=== PATIENT | male | born 1970 | race Caucasian/White ===

== ENCOUNTER → 2022-04-11 16:50 | Outpatient (CLI) | payer BC, SELFPAY ==
[2022-04-11 20:06] LABS: Basophils # 0.1 K/mm3 (0-0.2); Basophils % 0.5 % (0.1-2.0); Eosinophils # 0.4 K/mm3 (0.0-0.4); Hematocrit 49.6 % (42.0-52.0); Hemoglobin 16.6 g/dL (14.1-18.0); Lymphocytes # 2.5 K/mm3 (0.7-4.5); Mean Corpuscular HGB Conc 33.4 g/dL (31.8-35.4); Mean Corpuscular Hemoglobin 27.4 pg (27.0-31.2); Mean Platelet Volume 8.3 fl (7.4-10.4); Monocytes # 0.7 K/mm3 (0.1-1.0); Monocytes % 5.9 % (1.7-9.3); Neutrophils # 7.6 K/mm3 (1.8-7.8); Neutrophils % 67.6 % (37.0-80.0); Platelet Count 409 K/mm3 (142-424); Red Blood Count 6.05 M/mm3 (4.60-6.20); Red Cell Distribution Width 13.7 % (11.5-17.5); White Blood Count 11.2 K/mm3 (4.8-10.8)
== END ==
PROVIDERS: PCP Nurse Practitioner; Visit Provider Nurse Practitioner
DX: J06.9 Acute upper respiratory infection, unspecified (principal); J45.901 Unspecified asthma with (acute) exacerbation; R00.0 Tachycardia, unspecified
CPT/HCPCS: 85025

== ENCOUNTER → 2022-06-07 16:20 | Outpatient (CLI) | payer BC, SELFPAY ==
--- NOTE | 2022-06-07 16:24 | XR_ITS ---
PROCEDURE INFORMATION: Exam: XR Right Shoulder Exam date and time: 06/07/2022 4:30 PM Age: 52 years old Clinical indication: Pain; Shoulder; Right; Additional info: Right shoulder pain TECHNIQUE: Imaging protocol: Radiologic exam of the Right shoulder. Views: 2 or more views. COMPARISON: No relevant prior exams. FINDINGS: Bones/joints: Normal. No fractures or dislocations. The joint spaces are intact. Soft tissues: Normal. No swelling or abnormal density. IMPRESSION: Unremarkable shoulder.
--- NOTE | 2022-06-07 16:24 | XR_ITS ---
PROCEDURE INFORMATION: Exam: XR Entire Spine Exam date and time: 06/07/2022 4:30 PM Age: 52 years old Clinical indication: Other: Neck pain; Additional info: Neck pain with radiculopathy TECHNIQUE: Imaging protocol: XR of the entire spine. Evaluation for scoliosis or surgical evaluation. Views: 6 or more views. COMPARISON: No relevant prior exams. FINDINGS: Bones/joints: Vertebral body heights maintained. No fractures. Normal alignment. Moderate narrowing of the C5-C6 disc space. Minimal narrowing of some of the thoracic disc spaces. Small marginal endplate osteophytes. Mild narrowing of the L1-L2 and L5-S1 lumbar disc spaces. Soft tissues: Unremarkable. IMPRESSION: 1. No fractures or dislocations. 2. Mild degenerative changes of the cervical, thoracic, and lumbar spine.
== END ==
PROVIDERS: PCP Nurse Practitioner; Visit Provider Nurse Practitioner
DX: M25.511 Pain in right shoulder (principal); G89.29 Other chronic pain
CPT/HCPCS: 72084; 73030

== ENCOUNTER → 2022-10-05 23:29 | Outpatient (CLI) | payer BC, SELFPAY ==
[2022-10-05 18:34] LABS: Basophils # 0.1 K/mm3 (0-0.2); Basophils % 0.7 % (0.1-2.0); Eosinophils # 1.3 K/mm3 (0.0-0.4); Eosinophils % 11.7 % (0.1-12.0); Hematocrit 47.4 % (42.0-52.0); Hemoglobin 15.7 g/dL (14.1-18.0); Lymphocytes # 2.2 K/mm3 (0.7-4.5); Lymphocytes % 19.8 % (10-50); Mean Corpuscular HGB Conc 33.1 g/dL (31.8-35.4); Mean Corpuscular Hemoglobin 27.2 pg (27.0-31.2); Mean Corpuscular Volume 82.1 fl (80-94); Mean Platelet Volume 7.5 fl (7.4-10.4); Monocytes # 0.6 K/mm3 (0.1-1.0); Monocytes % 5.7 % (1.7-9.3); Neutrophils # 6.8 K/mm3 (1.8-7.8); Platelet Count 374 K/mm3 (142-424); Red Blood Count 5.77 M/mm3 (4.60-6.20); Red Cell Distribution Width 13.9 % (11.5-17.5); White Blood Count 10.9 K/mm3 (4.8-10.8)
== END ==
PROVIDERS: PCP Nurse Practitioner; Visit Provider Nurse Practitioner
DX: J18.9 Pneumonia, unspecified organism (principal); J45.901 Unspecified asthma with (acute) exacerbation
CPT/HCPCS: 85025

== ENCOUNTER → 2022-10-27 10:19 | Outpatient (CLI) | payer BC, SELFPAY ==
[2022-10-27 19:22] LABS: Basophils % 0.1 % (0.1-2.0); Eosinophils % 0.3 % (0.1-12.0); Hematocrit 49.8 % (42.0-52.0); Lymphocytes # 0.9 K/mm3 (0.7-4.5); Lymphocytes % 6.4 % (10-50); Mean Corpuscular HGB Conc 32.2 g/dL (31.8-35.4); Mean Corpuscular Hemoglobin 26.7 pg (27.0-31.2); Mean Platelet Volume 8.1 fl (7.4-10.4); Monocytes # 0.6 K/mm3 (0.1-1.0); Monocytes % 4.3 % (1.7-9.3); Neutrophils # 12.8 K/mm3 (1.8-7.8); Neutrophils % 88.9 % (37.0-80.0); Platelet Count 350 K/mm3 (142-424); Red Blood Count 5.99 M/mm3 (4.60-6.20); White Blood Count 14.4 K/mm3 (4.8-10.8)
[2022-10-27 19:24] LABS: MANUAL DIFFERENTIAL MANUAL DIFFERENTIAL (MANUAL DIFF)
[2022-10-27 19:29] LABS: Alanine Aminotransferase 71 U/L (12-78); Albumin Level 4.5 g/dl (3.5-5.0); Albumin/Globulin Ratio 1.6 (1.1-1.8); Alkaline Phosphatase 80 U/L (38-126); Anion Gap 16.7 mEq/L (5-15); Aspartate Amino Transferase 45 U/L (17-59); Bilirubin,Total 0.8 mg/dl (0.2-1.3); Blood Urea Nitrogen 14 mg/dl (9-20); Calcium 9.2 mg/dl (8.4-10.2); Carbon Dioxide 24 mmol/L (22.0-30.0); Chloride 103 mmol/L (98-107); Estimated Glomerular Filt Rate 102 ml/min (>60); GFR (African American) 123 ML/MIN (>60); Globulin 2.8 g/dL (1.3-3.2); Glucose 78 mg/dl (74-100); Potassium 4.7 mmoL/L (3.5-5.1); Sodium 139 mmol/L (136-145); Total Protein,Serum 7.3 g/dl (6.3-8.2)
[2022-10-27 19:42] LABS: Hemoglobin A1C 5.6 % (4.0-6.0)
[2022-10-27 19:45] LABS: 25-OH Vitamin D, Total 33.3 ng/mL (30-100); Lymphocytes % 5 % (10-50); Monocytes % 3 % (2-9); Neutrophils % 92 % (42-76); Platelet Estimate Normal; RBC Morphology Normal; Total Cells Counted 100
[2022-10-27 20:15] LABS: Vitamin B12 649 pg/mL (239-931)
== END ==
PROVIDERS: PCP Nurse Practitioner; Visit Provider Nurse Practitioner
DX: J45.901 Unspecified asthma with (acute) exacerbation (principal); R20.2 Paresthesia of skin; E66.3 Overweight; Z68.29 Body mass index [BMI] 29.0-29.9, adult
CPT/HCPCS: 80053; 82306; 82607; 83036; 84443; 85007; 85025

== ENCOUNTER → 2022-11-14 23:00 | Outpatient (CLI) | payer BC, SELFPAY ==
[2022-11-14 18:42] LABS: Basophils % 0.3 % (0.1-2.0); Eosinophils # 0.1 K/mm3 (0.0-0.4); Eosinophils % 0.9 % (0.1-12.0); Hemoglobin 16.2 g/dL (14.1-18.0); Lymphocytes # 1.7 K/mm3 (0.7-4.5); Lymphocytes % 23.5 % (10-50); Mean Corpuscular HGB Conc 31.2 g/dL (31.8-35.4); Mean Corpuscular Hemoglobin 26.6 pg (27.0-31.2); Mean Corpuscular Volume 85.2 fl (80-94); Mean Platelet Volume 8.1 fl (7.4-10.4); Monocytes # 0.5 K/mm3 (0.1-1.0); Monocytes % 7.6 % (1.7-9.3); Neutrophils # 4.9 K/mm3 (1.8-7.8); Neutrophils % 67.7 % (37.0-80.0); Platelet Count 323 K/mm3 (142-424); Red Cell Distribution Width 14.1 % (11.5-17.5); White Blood Count 7.2 K/mm3 (4.8-10.8)
[2022-11-14 19:08] LABS: Free Thyroxine Index 4.1 ug/dL (5.93-13.13); T4 (Thyroxine) 10.8 ug/dl (5.53-11.0); Triiodothryronine (T3) Uptake 38 % (23.5-40.5)
[2022-11-14 19:21] LABS: Thyroid Stimulating Hormone 0.65 uIU/mL (0.465-4.68)
[2022-11-14 19:22] LABS: Thyroid Stimulating Hormone 0.66 uIU/mL (0.465-4.68)
== END ==
PROVIDERS: PCP Nurse Practitioner; Visit Provider Nurse Practitioner
DX: R79.89 Other specified abnormal findings of blood chemistry (principal); J45.901 Unspecified asthma with (acute) exacerbation
CPT/HCPCS: 84436; 84443; 84479; 85025

== ENCOUNTER → 2022-11-29 07:52 | Outpatient (CLI) | payer BC, SELFPAY ==
--- NOTE | 2022-11-29 07:53 | NM_ITS ---
APPROVED REPORT Exam: Nuclear Stress Test Indication: DYSRHYRHMIA, FM HX, C.P., SOB, PALPITATIONS, FATIGUE Patient Location: Outpatient Stress Tech: [facility] Tech:Viri Boles, YOLANDA RT (R)(N)(M) Ht: 5 ft 5 in Wt: 174 lbs HR: 52 bpm BP: 163/92 mmHg BSA: 1.86 m2 Rhythm: NSR TID: 0.95 BMI: 28.9 History: DYSRHYRHMIA, FM HX, C.P., SOB, PALPITATIONS, FATIGU Procedure: Patient exercised on Bhanu protocol 10:09 minutes and sec, resting heart rate 52 bpm, resting blood pressure 163/92 mmHg, with exercise maximum heart rate achived was 132 bpm which is 98 % of the maximum predicted heart rate and blood pressure was 180/90 mmHg. Test was stopped due to SOB. Patient denied any complaint of chest pain. Patient has Average exercise capacity, achieved 12.8 METs of workload on treadmill, the blood pressure response to exercise was Exaggerated. Cardiac Stress and Resting SPECT Images: Cardiac Stress and Resting SPECT images were obtained using technetium 99m Myoview 31.6 mCi stress and 10.32 mCi at rest. Resting and stress imaging in supine position demonstrate a medium sized, moderate, partially reversible perfusion defect in the inferior and inferoseptal LV bello. This is no longer visualized with prone stress imaging. Findings are suggestive of diaphragmatic attenuation. Gated imaging demonstrates normal global and regional LV systolic function. LVEF is calculated at 56%. Conclusion: Resting and stress imaging in supine position demonstrate a medium sized, moderate, partially reversible perfusion defect in the inferior and inferoseptal LV bello. This is no longer visualized with prone stress imaging. Findings are suggestive of diaphragmatic attenuation. Gated imaging demonstrates normal global and regional LV systolic function. LVEF is calculated at 56%. Electronically signed by : Francheska Huitron, 11/29/2022 18:49:42
--- NOTE | 2022-11-29 08:01 | CA_ITS ---
APPROVED REPORT EXAM: Comprehensive 2D, Doppler, and color-flow Echocardiogram [employer] Assistant: Alejandra Ryan CRT Ht: 5 ft 5 in Wt: 174lbs BSA: 1.86 BP: 110/62 mmHg Indications: Chest Pain,tachycardia 2D Dimensions LVOT 2.01 cm (M/F) 1.5-2.5 LA Volume 17.50 mL LA Volume Index 9.20 mL/m2 (M/F) 16-34 M-Mode Dimensions RVDd 2.54 cm (0.9-2.6) LA Diam 2.89 cm (1.9-4.0) LVDd 4.69 cm (3.5-5.7) Ao Diam 4.07 cm (2.0-3.7) LVDs 3.35 cm (3.5-5.7) IVSd 1.48 cm (0.6-1.1) PWd 0.93 cm (0.6-1.1) EF (Teich) 55.10% FS 28.60% EDV (Teich) 101.90 mL TAPSE 2.29 (<1.7) ESV (Teich) 45.80 mL LV Diastology E Decel Time 140.00 (160-240 msec) E/A Ratio 1.44 MED E' 8.40 (< 7 cm/sec) MED A' 10.80 cm/s E'/MED E' Ratio 10.74 (>14) LAT E' 10.20 (<10 cm/sec) LAT A' 11.40 cm/s E/LAT E' Ratio 8.84 (>14) Aortic Valve AO Peak GR. 6.00 mmHg Mitral Valve MV A Velocity 63.00 (40-130 cm/s) E/A Ratio 1.44 MV Decel. Time 140.00 (160-240 ms) Pulmonary Valve PV Peak Velocity 78.00 (50-150 cm/s) Tricuspid Valve TR P. Velocity 176.00 cm/s RAP Estimate 10.00 mmHg RVSP 22.40 mmHg Left Ventricle The left ventricle is normal size. The left ventricular systolic function is normal. The left ventricular ejection fraction is within the normal range. There is normal left ventricular wall thickness. There is normal LV segmental wall motion. The left ventricular diastolic function is normal. LVEF is 60%. Right Ventricle The right ventricle is normal size. The right ventricular systolic function is normal. Atria The left atrium size is normal. The right atrium size is normal. There is no Doppler evidence of interatrial shunt. Aortic Valve The aortic valve opens well. There is no aortic valvular stenosis. No aortic regurgitation is present. Mitral Valve The mitral valve is normal in structure. Mild mitral regurgitation. Tricuspid Valve The tricuspid valve leaflets are thin and pliable. Trace tricuspid regurgitation. There is insufficient TR jet to estimate RVSP. Pulmonic Valve The pulmonary valve is normal in structure. Trace pulmonic regurgitation. Great Vessels The aortic root is normal in size. The ascending aorta is normal in size. The IVC is not well visualized. Pericardium There is no pericardial effusion. Other Information Study Quality: Fair Conclusion Normal biventricular systolic function. No significant valvular disease. Electronically signed by : Francheska Huitron, 11/29/2022 15:35:12
--- NOTE | 2022-11-29 10:13 | CA_ITS ---
APPROVED REPORT Exam: Exercise Treadmill Technologist: Christie Skelton, Ht: 5 ft 5 in Wt: 174 lbs BSA: 1.86 m2 HR: 83 bpm BP: 140/88 mmHg Rhythm: NSR Medical History Medications: Albuterol,,,,, Montelukast,,,,, Prednisone,,,,, Methocarbamol,,,,, NYstatin,,,,, Fluconazole,,,,, Diclofenac Sodium,,,,, Trelegy Ellipta,,,,, DexTROMETHORPHAN-guaifensin,,,,, Stress Test Details Test: Bhanu HR Resting HR: 83 bpm Max Heart Rate (APMHR): 169 bpm Max HR Achieved: 178 bpm Target HR (85% APMHR): 144 bpm % of APMHR: 105 Recovery HR: 110 bpm HR response to stress: Normal HR response to stress BP Resting BP: 158.0/99.0 mmHg Max BP: 202.0/98.0 mmHg Recovery BP: 142.0/88.0 mmHg BP response to stress: Abnormal hypertensive response to stress. ECG Resting ECG: normal sinus rhythm, nonspecific T wave changes in inferior leads Stress ECG: No significant ST changes Arrhythmia: PVCs Recovery ECG: No significant ST changes Recovery Arrhythmia: None Clinical Exercise duration: 10:42 min Highest Stage Achieved: IV Exercise capacity: 12.8 METs Overall Exercise Capacity for Age: Average Stress ECG Conclusion The patient was able to exercise for a total of 10 minutes, 42 seconds. He achieved a total of 12.8 METS. He has an average exercise capacity compared to age and sex matched peers. He has normal HR, but exaggerated BP, response to exercise. Max HR: 178 % of PM: 105 Max BP: 202/98 METs: 12.8 Test stopped due to: Leg fatigue. Symptoms: Leg fatigue, chest tightness. Arrhythmias/Ectopy: PVCs ST-T Changes: None Conclusion: Average exercise capacity. Exaggerated BP response to exercise. At peak stress, there was no significant ST changes on ECG stress test. Myoview images are reported separately. Test Summary REST . . . . . . . Sitting REST . . . . . . . Standing REST 08:41 0.0 1.2 83 . 158/ 99 . . Stage 1 01:00 10.0 1.7 99 . . . . Stage 1 02:00 10.0 1.7 95 . . . . Stage 1 03:00 10.0 1.7 99 . 170/ 84 . . Stage 2 01:00 12.0 2.5 110 . . . . Stage 2 02:00 12.0 2.5 121 . 184/ 88 . . Stage 2 03:00 12.0 2.5 123 . 184/ 88 . . Stage 3 01:00 14.0 3.4 140 . . . . Stage 3 02:00 14.0 3.4 149 . 202/ 98 . . Stage 3 03:00 14.0 3.4 150 . 202/ 98 . . Stage 4 . . . . . . . Myoview Injected Stage 4 01:00 16.0 4.2 169 . . . . Stage 4 01:42 16.0 4.2 176 . . . Stop exercise at 10:42 RECOVERY 01:00 0.0 0.0 145 . 198/ 90 . . RECOVERY 02:00 0.0 0.0 124 . 198/ 90 . . RECOVERY 03:00 0.0 0.0 119 . 178/ 84 . . RECOVERY 04:00 0.0 0.0 115 . 158/ 78 . . RECOVERY 05:00 0.0 0.0 115 . 158/ 78 . . RECOVERY 06:00 0.0 0.0 110 . 178/ 84 . . RECOVERY 07:00 0.0 0.0 110 . 178/ 84 . . RECOVERY 08:00 0.0 0.0 109 . 142/ 88 . . RECOVERY 08:18 0.0 0.0 111 . 142/ 88 . . Electronically signed by : Francheska Huitron, 11/29/2022 18:46:07
== END ==
PROVIDERS: PCP Nurse Practitioner; Visit Provider Nurse Practitioner
DX: R07.89 Other chest pain (principal); R00.0 Tachycardia, unspecified
CPT/HCPCS: 78452; 93017; 93306; A9502